=== PATIENT | male | born 1965 | race Caucasian/White ===

== ENCOUNTER 2021-01-06 11:55 | Inpatient (IN) ==
[2021-01-06] MEDS ORDERED: *HR* Dextrose 50 % in Water (Vial) 50 ML VIAL IVP PRN (18:57)
[2021-01-06] MEDS ORDERED: Dextrose Gel 15 GM/37.5 ML TUBE PO PRN ×2 (18:57)
[2021-01-06] MEDS ORDERED: D5% in Water 1,000 ML IVC PRN (18:57)
[2021-01-06] MEDS ORDERED: Insulin LISPRO 300 UNITS/3 ML VIAL SUBQ SCH (21:00)
[2021-01-06] MEDS ORDERED: Insulin DETEMIR 100 UNIT/ML per UNIT SUBQ ONE (21:00)
[2021-01-06] MEDS: carvediloL 25 MG TABLET PO SCH (22:29)
[2021-01-06] MEDS: Ascorbic Acid 500 MG TABLET PO SCH (22:29)
[2021-01-06] MEDS: *HR* OxyCODONE Immed Rel 5 MG TABLET PO PRN (22:29)
[2021-01-06] MEDS: *HR* Heparin 5,000 UNIT/ML VIAL SQ SCH (22:30)
[2021-01-07 04:40] LABS: Basophils # 0.1 K/mcL (0.0-0.2); Basophils % 0.7 %; Eosinophils # 0.5 K/mcL (0.0-0.6); Hematocrit 29.1 % (37.5-50.1); Immature Granulocytes % 0.5 % (0-4); Lymphocytes # 2.1 K/mcL (0.6-4.6); Lymphocytes % 24.9 %; Mean Corpuscular HGB Conc 33.3 g/dL (31.6-35.5); Mean Corpuscular Hemoglobin 31.6 pg (28.0-33.3); Mean Corpuscular Volume 94.8 fL (83.0-100.0); Mean Platelet Volume 11.4 fL (9.4-12.4); Monocytes # 1.5 K/mcL (0.0-1.3); Monocytes % 17.2 %; Neutrophils # 4.3 K/mcL (1.6-8.9); Platelet Count 228 K/mcL (140-400); Red Blood Count 3.07 M/mcL (4.19-5.50); Red Cell Distribution Width 12.6 % (11.5-14.5); Segmented Neutrophils % 50.7 %; White Blood Count 8.5 K/mcL (4.3-11.1)
[2021-01-07 04:51] LABS: Platelet Estimate Normal (Normal)
[2021-01-07 04:52] LABS: Hemoglobin 9.7 g/dL (12.9-16.9)
[2021-01-07 04:55] LABS: Sodium 132 mEq/L (136-145)
[2021-01-07 04:56] LABS: BUN/Creatinine Ratio 22 (6-26); Blood Urea Nitrogen 16 mg/dL (6-20); Calcium 8.5 mg/dL (8.6-10.3); Carbon Dioxide 29 mEq/L (23-29); Chloride 97 mEq/L (98-107); Glucose 36 mg/dL (70-105); Osmolality,Calculated 272 (280-300); Potassium 3.5 mEq/L (3.5-5.1); eGFR For African Americans > 60 (> 60); eGFR For Non-African Americans > 60 (> 60)
[2021-01-07] MEDS ORDERED: *HR* Dextrose 50 % in Water (Vial) 50 ML VIAL IVP PRN (05:01)
[2021-01-07] MEDS ORDERED: Dextrose Gel 15 GM/37.5 ML TUBE PO PRN ×2 (05:01)
[2021-01-07] MEDS ORDERED: D5% in Water 1,000 ML IVC PRN (05:01)
[2021-01-07] MEDS: *HR* OxyCODONE Immed Rel 5 MG TABLET PO PRN ×2 (05:42→17:21)
[2021-01-07] MEDS: *HR* Heparin 5,000 UNIT/ML VIAL SQ SCH ×3 (05:43→22:00)
[2021-01-07] MEDS ORDERED: Insulin LISPRO 300 UNITS/3 ML VIAL SUBQ SCH ×2 (07:30→21:00)
[2021-01-07] MEDS: Loratadine 10 MG TABLET PO SCH (09:11)
[2021-01-07] MEDS: Cholecalciferol (D-3) 1,000 UNIT (25MCG) TABLET PO SCH (09:12)
[2021-01-07] MEDS: Folic Acid 1 MG TABLET PO SCH (09:13)
[2021-01-07] MEDS ORDERED: *HR* OxyCODONE Immed Rel 5 MG TABLET PO STA (09:13)
[2021-01-07] MEDS: carvediloL 25 MG TABLET PO SCH ×2 (09:14→17:01)
[2021-01-07] MEDS: Acetaminophen 325 MG TABLET PO PRN ×2 (09:15→21:59)
[2021-01-07] MEDS: Multivit/Ca/Min/Fe/FA 1 TAB TABLET PO SCH (09:15)
[2021-01-07] MEDS: Zinc Sulfate 220 MG CAPSULE PO SCH (09:15)
[2021-01-07] MEDS: Ascorbic Acid 500 MG TABLET PO SCH ×2 (09:16→22:00)
[2021-01-07] MEDS: Insulin LISPRO 300 UNITS/3 ML VIAL SUBQ SCH ×3 (10:00→17:02)
[2021-01-07] MEDS ORDERED: Isovue-370 500 ML BOTTLE IVP ONE (11:48)
[2021-01-07] MEDS ORDERED: Isovue-370 500 ML BOTTLE PO ONE (11:59)
[2021-01-07] MEDS ORDERED: Piperacillin/Tazobactam 3.375 GM in 0.9 % Sodium Chloride Mini Bag 100 ML IVPB ONE (17:12)
[2021-01-07] MEDS ORDERED: Vancomycin 500 MG in 0.9 % Sodium Chloride Mini Bag 100 ML IVPB ONE (19:00)
[2021-01-07] MEDS ORDERED: Insulin DETEMIR 100 UNIT/ML X5UNITS SUBQ SCH ×2 (21:00)
[2021-01-08] MEDS: Piperacillin/Tazobactam 3.375 GM in 0.9 % Sodium Chloride Mini Bag 100 ML IVPB SCH ×2 (01:50→10:04)
[2021-01-08 04:23] VITALS: RESP 17
[2021-01-08 05:29] LABS: Basophils # 0.1 K/mcL (0.0-0.2); Basophils % 0.7 %; Eosinophils # 0.5 K/mcL (0.0-0.6); Eosinophils % 7.2 %; Hematocrit 25.6 % (37.5-50.1); Hemoglobin 8.6 g/dL (12.9-16.9); Immature Granulocytes % 0.6 % (0-4); Lymphocytes # 1.9 K/mcL (0.6-4.6); Lymphocytes % 26.2 %; Mean Corpuscular HGB Conc 33.6 g/dL (31.6-35.5); Mean Corpuscular Volume 95.2 fL (83.0-100.0); Mean Platelet Volume 10.9 fL (9.4-12.4); Monocytes % 13.5 %; Neutrophils # 3.7 K/mcL (1.6-8.9); Platelet Count 203 K/mcL (140-400); Red Blood Count 2.69 M/mcL (4.19-5.50); Red Cell Distribution Width 12.7 % (11.5-14.5); Segmented Neutrophils % 51.8 %; White Blood Count 7.1 K/mcL (4.3-11.1)
[2021-01-08 05:35] LABS: Platelet Estimate Normal (Normal)
[2021-01-08 05:42] LABS: BUN/Creatinine Ratio 16 (6-26); Blood Urea Nitrogen 12 mg/dL (6-20); Carbon Dioxide 29 mEq/L (23-29); Chloride 100 mEq/L (98-107); Glucose 60 mg/dL (70-105); Osmolality,Calculated 276 (280-300); Sodium 134 mEq/L (136-145); eGFR For African Americans > 60 (> 60); eGFR For Non-African Americans > 60 (> 60)
[2021-01-08] MEDS: *HR* OxyCODONE Immed Rel 5 MG TABLET PO PRN (05:54)
[2021-01-08] MEDS: *HR* Heparin 5,000 UNIT/ML VIAL SQ SCH (05:55)
[2021-01-08] MEDS ORDERED: Vancomycin 1,250 MG/262.5 ML IV.SOLN IVPB SCH (07:00)
[2021-01-08 07:40] VITALS: BP 139/74; PULSE 90; TEMP 94.6; O2SAT 97
[2021-01-08] MEDS: Insulin LISPRO 300 UNITS/3 ML VIAL SUBQ SCH (07:50)
[2021-01-08] MEDS: Cholecalciferol (D-3) 1,000 UNIT (25MCG) TABLET PO SCH (07:52)
[2021-01-08] MEDS: Ascorbic Acid 500 MG TABLET PO SCH (07:52)
[2021-01-08] MEDS: Folic Acid 1 MG TABLET PO SCH (07:52)
[2021-01-08] MEDS: carvediloL 25 MG TABLET PO SCH (07:52)
[2021-01-08] MEDS: Multivit/Ca/Min/Fe/FA 1 TAB TABLET PO SCH (07:52)
[2021-01-08] MEDS: Loratadine 10 MG TABLET PO SCH (07:52)
[2021-01-08] MEDS: Zinc Sulfate 220 MG CAPSULE PO SCH (07:52)
[2021-01-08 18:50] LABS: Acinetobacter baumannii by PCR Not Detected (Not Detect); Candida albicans by PCR Not Detected (Not Detect); Candida glabrata by PCR Not Detected (Not Detect); Candida krusei by PCR Not Detected (Not Detect); Candida parapsilosis by PCR Not Detected (Not Detect); Candida tropicalis by PCR Not Detected (Not Detect); Enterobacter cloacae Cmplx PCR Not Detected (Not Detect); Enterobacteriaceae by PCR Not Detected (Not Detect); Enterococcus by PCR Not Detected (Not Detect); Escherichia coli by PCR Not Detected (Not Detect); Klebsiella oxytoca by PCR Not Detected (Not Detect); Klebsiella pneumoniae by PCR Not Detected (Not Detect); Proteus by PCR Not Detected (Not Detect); Pseudomonas aeruginosa by PCR Not Detected (Not Detect); Serratia marcescens by PCR Not Detected (Not Detect); Staphylococcus aureus by PCR Not Detected (Not Detect); Staphylococcus by PCR Not Detected (Not Detect); Streptococcus agalactiae(B)PCR Not Detected (Not Detect); Streptococcus by PCR DETECTED (Not Detect); Streptococcus pneumoniae PCR Not Detected (Not Detect); Streptococcus pyogenes (A) PCR Not Detected (Not Detect)
== END 2021-01-08 09:58 | disposition short-term general hospital (02) | DRG 950 ==
LOC: INPGRE 17:57
PROVIDERS: ADMIT Family Medicine; ATTEND Family Medicine